=== PATIENT | female | born 1960 | race Caucasian/White ===

== ENCOUNTER 2018-02-10 16:17 | Emergency (ER) | payer BC, OTHER ==
[~2018-02-10] VITALS: Ht 170.2 cm; Wt 99.8 kg
[~2018-02-10 16:17] MED LIST: ALPR0.5T PO; DOXE100C4 PO; FIORCET IM; KETO60VI IM; ONDA4VIA30 IM; VERA360C2 PO
--- NOTE | 2018-02-10 16:42 | NUR ---
Patient is AOx4, wearing her dark eyeglasses, c/o her usual migraine headaches.
[2018-02-10] MEDS ORDERED: MEMA10TA PO (16:51)
[2018-02-10] MEDS ORDERED: HYDROMORPHONE 2 MG/1 ML DISP.SYRIN ONE (17:08)
[2018-02-10] MEDS ORDERED: PROCHLORPERAZINE EDISYLATE 10 MG/2 ML VIAL ONE (17:09)
[2018-02-10] MEDS ORDERED: IV NORMAL SALINE 1000 ML BAG IV ONE (17:15)
[2018-02-10] MEDS ORDERED: HYDROMORPHONE 1 MG/1 ML DISP.SYRIN IV ONE (17:15)
[2018-02-10] MEDS ORDERED: PROCHLORPERAZINE EDISYLATE 10 MG/2 ML VIAL IV ONE (17:15)
--- NOTE | 2018-02-10 18:02 | NUR ---
Patient is resting comfortably on gurney while wearing her dark eyeglasses , decreased headaches expressed, for disposition.
--- NOTE | 2018-02-10 18:11 | NUR ---
IV removed. Catheter intact and site benign. Pressure and 4x4 gauze applied to site. No bleeding noted. Patient discharged to home in stable conditon & steady gait. Written and verbal after care instructions given to patient. Patient verbalizes understanding of instructions. Patient says that she will use the "[employer]" and will not drive.
== END 2018-02-10 18:17 | disposition home or self-care (01) ==
LOC: ER 16:20
DX: G43.909 Migraine, unspecified, not intractable, without status migrainosus (principal); I10 Essential (primary) hypertension; J45.909 Unspecified asthma, uncomplicated; E78.5 Hyperlipidemia, unspecified; Z88.0 Allergy status to penicillin
CPT/HCPCS: 96361; 96374; 96375; 99284; A4663; J0780; J1170; J3490; J7030

== ENCOUNTER 2024-10-17 11:05 | Emergency (ER) | payer BC ==
[~2024-10-17] VITALS: Ht 170.2 cm; Wt 67.1 kg
[~2024-10-17 11:05] MED LIST changes: +MEMA10TA PO; -ONDA4VIA30 IM; +ONDA4VIA52 IM
[2024-10-17] MEDS ORDERED: diphenhydrAMINE 50 MG/1 ML VIAL ONE (13:12)
[2024-10-17] MEDS ORDERED: PROCHLORPERAZINE EDISYLATE 10 MG/2 ML VIAL ONE (13:13)
[2024-10-17] MEDS ORDERED: CLINDAMYCIN 600 MG PIGGYBACK**ER OMNI IV ONE (13:13)
[2024-10-17] MEDS: PROCHLORPERAZINE EDISYLATE 10 MG/2 ML VIAL IV ONE (13:23)
[2024-10-17] MEDS: CLINDAMYCIN PHOSPHATE IV 600 MG in IV DEXTROSE 5% 100 ML IV ONE (13:23)
[2024-10-17] MEDS: IV NORMAL SALINE 1000 ML BAG IV ONE (13:23)
[2024-10-17] MEDS: diphenhydrAMINE 50 MG/1 ML VIAL IV ONE (13:23)
[2024-10-17 13:34] LABS: BASOPHILS % (AUTO) 0.6 % (0.0-2.0); HEMATOCRIT 40.3 % (31.2-41.9); HEMOGLOBIN 13.7 g/dL (10.9-14.3); LYMPHOCYTES # (AUTO) 0.4 K/uL (0.8-4.8); LYMPHOCYTES % (AUTO) 7.7 % (20.5-51.5); MEAN CORPUSCULAR HEMOGLOBIN 35.8 uug (24.7-32.8); MEAN CORPUSCULAR HGB CONC 34 g/dL (32.3-35.6); MEAN CORPUSCULAR VOLUME 105.4 fL (75.5-95.3); MONOCYTES # (AUTO) 0.4 K/uL (0.1-1.30); MONOCYTES % (AUTO) 7.6 % (0.0-11.0); NEUTROPHILS # (AUTO) 4.5 K/uL (1.8-8.9); NEUTROPHILS % (AUTO) 84.1 % (38.5-71.5); PLATELET COUNT (AUTO) 206 K/uL (179-408); RED BLOOD CELL COUNT(AUTO) 3.82 MIL/uL (3.63-4.92); RED CELL DISTRIBUTION WIDTH 15.2 % (12.3-17.7); WHITE BLOOD COUNT (AUTO) 5.4 K/uL (3.8-11.8)
[2024-10-17 13:42] LABS: DIFFERENTIAL COMMENT 1
[2024-10-17 13:50] LABS: CALCIUM 8.2 mg/dL (8.5-10.1); CARBON DIOXIDE 21 mmol/L (21-32); CHLORIDE 101 mmol/L (98-107); GLUCOSE 103 mg/dL (74-106); POTASSIUM 3.7 mmol/L (3.5-5.1); SODIUM SERUM 136 mmol/L (136-145); UREA NITROGEN, BLOOD 18 mg/dL (7-18)
[2024-10-17 14:03] LABS: ALANINE AMINOTRANSFERASE 16 U/L (14-59); ALBUMIN 2.8 g/dL (3.4-5.0); ALKALINE PHOSPHATASE 87 U/L (50-136); ASPARTATE AMINOTRANSFERASE 10 U/L (15-37); BILIRUBIN,DIRECT 0.3 mg/dL (0.0-0.2); BILIRUBIN,TOTAL 0.9 mg/dL (0.2-1.0); NT-PRO BNP 127 pg/mL (0-125); TOTAL PROTEIN, SERUM 6.5 g/dL (6.4-8.2)
[2024-10-17] MEDS ORDERED: CLIN300C12 PO (15:59)
[2024-10-17] MEDS ORDERED: KETOROLAC TROMETHAMINE 15 MG INJ ONE (16:20)
[2024-10-17] MEDS: KETOROLAC TROMETHAMINE 15 MG INJ IVP ONE (16:23)
[2024-10-17 17:20] VITALS: BP 124/69; TEMP 98.8; O2SAT 96
== END 2024-10-17 17:21 | disposition home or self-care (01) ==
LOC: ER 11:05
DX: L03.211 Cellulitis of face (principal); E78.5 Hyperlipidemia, unspecified; F32.A Depression, unspecified; I11.9 Hypertensive heart disease without heart failure; J45.909 Unspecified asthma, uncomplicated; Z79.899 Other long term (current) drug therapy; Z60.2 Problems related to living alone; Z88.0 Allergy status to penicillin; Z88.7 Allergy status to serum and vaccine
CPT/HCPCS: 99285; 96365; 96375; 71045; 80076; 80048; 83880; 85025; 84145; 85730; 87040 ×2; 84484; 36415; 93005; 83605; J1885; J3490 ×2; J1200; J0780; J7040 ×2; A4606; A4663